=== PATIENT | female | born 1990 | race Caucasian/White ===

== ENCOUNTER 2017-07-16 23:31 | Emergency (ER) | payer BC, MEDICAID ==
[~2017-07-16] VITALS: Ht 160 cm; Wt 70.3 kg
[2017-07-16 23:40] VITALS: BP_SYST 120
[2017-07-17] MEDS ORDERED: KETOROLAC TROMETHAMINE 30 MG VIAL IVP ONE
[2017-07-17] MEDS: AMOXICILLIN 500 MG CAPSULE PO ONE (00:14)
[2017-07-17] MEDS: KETOROLAC TROMETHAMINE 30 MG VIAL IM ONE (00:14)
[2017-07-17 00:26] VITALS: BP_SYST 117
== END 2017-07-17 00:21 | disposition home or self-care (01) ==
LOC: SED 23:31
DX: J02.0 Streptococcal pharyngitis (principal)
CPT/HCPCS: 36415; 86403; 96372; 99283; J1885

== ENCOUNTER 2018-02-01 11:14 | Emergency (ER) | payer MEDICAID ==
[~2018-02-01] VITALS: Ht 160 cm; Wt 72.6 kg
[2018-02-01 11:16] VITALS: BP_SYST 107
== END 2018-02-01 11:45 ==
LOC: SED 11:14
DX: F41.9 Anxiety disorder, unspecified (principal)
CPT/HCPCS: 99283